=== PATIENT | male | born 1965 | race Caucasian/White ===

== ENCOUNTER 2021-01-12 13:43 | Emergency (ER) | payer MEDICAID ==
[~2021-01-12] VITALS: Ht 182.9 cm; Wt 116.0 kg
[2021-01-12] MEDS ORDERED: ENULOSE10 GM/15 M PO (16:01)
== END 2021-01-12 16:26 | disposition home or self-care (01) ==
LOC: ED 13:43
DX: K72.90 Hepatic failure, unspecified without coma (principal)
CPT/HCPCS: 80053; 81001; 82140; 85025; 99284; U0003